=== PATIENT | female | born 2000 | race Caucasian/White ===

== ENCOUNTER → 2021-10-11 15:50 | Outpatient (CLI) | payer MEDICAID, SELFPAY ==
[2021-10-11 13:18] LABS: Basophils # 0.2 K/mm3 (0-0.2); Basophils % 2.7 % (0.1-2.0); Eosinophils # 0.1 K/mm3 (0.0-0.4); Eosinophils % 1.7 % (0.1-12.0); Hematocrit 47.3 % (37.0-47.0); Hemoglobin 15.1 g/dL (12.2-16.2); Lymphocytes # 3.1 K/mm3 (0.7-4.5); Lymphocytes % 40.2 % (10-50); Mean Corpuscular HGB Conc 31.9 g/dL (31.8-35.4); Mean Corpuscular Hemoglobin 30.4 pg (27.0-31.2); Mean Corpuscular Volume 95.4 fl (81-99); Monocytes # 0.4 K/mm3 (0.1-1.0); Monocytes % 5.1 % (1.7-9.3); Neutrophils # 3.9 K/mm3 (1.8-7.8); Neutrophils % 50.2 % (37.0-80.0); Platelet Count 359 K/mm3 (142-424); Red Blood Count 4.96 M/mm3 (4.20-5.40); Red Cell Distribution Width 13.3 % (11.5-17.5); White Blood Count 7.8 K/mm3 (4.5-13.0)
[2021-10-11 13:38] LABS: Hemoglobin A1C 5.8 % (4.0-6.0)
[2021-10-11 13:42] LABS: Alanine Aminotransferase 33 U/L (12-78); Albumin Level 4.4 g/dl (3.5-5.0); Albumin/Globulin Ratio 1.7 (1.1-1.8); Alkaline Phosphatase 70 U/L (38-126); Anion Gap 11.8 mEq/L (5-15); Aspartate Amino Transferase 42 U/L (14-36); Bilirubin,Total 0.5 mg/dl (0.2-1.3); Blood Urea Nitrogen 11 mg/dl (7-17); Calcium 8.9 mg/dl (8.4-10.2); Carbon Dioxide 24 mmol/L (22.0-30.0); Chloride 104 mmol/L (98-107); Estimated Glomerular Filt Rate 203 ml/min (>60); GFR (African American) 246 ML/MIN (>60); Globulin 2.6 g/dL (1.3-3.2); Glucose 135 mg/dl (74-100); Potassium 3.8 mmoL/L (3.5-5.1); Sodium 136 mmol/L (136-145)
[2021-10-11 13:59] LABS: Free T4 (Free Thyroxine) 0.77 ng/dl (0.78-2.19)
[2021-10-11 14:13] LABS: Thyroid Stimulating Hormone 1.75 uIU/mL (0.465-4.68)
== END ==
PROVIDERS: Visit Provider Family Medicine
DX: E11.9 Type 2 diabetes mellitus without complications (principal); L74.9 Eccrine sweat disorder, unspecified
CPT/HCPCS: 80053; 83036; 84439; 84443; 85025

== ENCOUNTER → 2021-10-25 12:46 | Outpatient (CLI) | payer MEDICAID, SELFPAY ==
--- NOTE | 2021-10-25 12:46 | US_ITS ---
FINAL REPORT CLINICAL HISTORY: Fullness/Enlarged during exam FINDINGS: THYROID ULTRASOUND The right lobe of the thyroid measures 3.6 x 1.9 x 1.5 cm. The left lobe of the thyroid measures 3.2 x 1.5 x 1.3 cm. Blood flow is noted throughout the thyroid. There is a 3 mm cystic nodule in the right lobe of the thyroid consistent with a TI-RADS 0. There are several left thyroid nodules. A 3 mm cystic nodule in the upper pole the left thyroid is consistent with a TI-RADS 0. There is a 1.2 x 0.9 x 0.7 cm solid hypoechoic nodule in the mid left thyroid consistent with a TI-RADS 4. There is a 0.9 x 0.7 x 0.5 cm mostly cystic nodule in the lower pole the left thyroid consistent with a TI-RADS 0. IMPRESSION: Multiple nodules as described. Recommend six-month follow-up. Reviewed, Interpreted and Dictated by Martir Levine III, MD Transcribed by Carloz Amos Authenticated by Martir Levine III, MD on 10/25/2021 03:18:21 PM [facility]
== END ==
PROVIDERS: PCP Family Medicine; Visit Provider Family Medicine
DX: E04.9 Nontoxic goiter, unspecified (principal)
CPT/HCPCS: 76536

== ENCOUNTER → 2022-08-22 23:32 | Outpatient (CLI) | payer MEDICAID, SELFPAY ==
[2022-08-22 19:13] LABS: Free T4 (Free Thyroxine) 0.88 ng/dl (0.78-2.19)
[2022-08-22 19:27] LABS: Thyroid Stimulating Hormone 1.99 uIU/mL (0.465-4.68)
== END ==
PROVIDERS: PCP Family Medicine; Visit Provider Family Medicine
DX: R53.83 Other fatigue (principal)
CPT/HCPCS: 84439; 84443